=== PATIENT | male | born 1960 | race Caucasian/White ===

== ENCOUNTER 2022-02-23 19:39 | Emergency (ER) | payer OTHER, SELFPAY ==
[2022-02-23 19:40] VITALS: BP 144/98; PULSE 91; RESP 16; TEMP 36.6; O2SAT 98
--- NOTE | 2022-02-23 19:54 | ED.GENADULT ---
HPI - General Adult General Chief complaint: Unspecified Stated complaint: throat surgery ; throat is bleeding Time Seen by Provider: 02/23/22 19:41 Source: patient Mode of arrival: ambulatory Limitations: no limitations History of Present Illness HPI narrative: this is a 61-year-old gentleman that recently had adenoid ectomy and tonsillectomy approximately 9 days ago and was doing well until today when he was exposed to cigarette smoker and began coughing and cause some bleeding from the left surgery site. Currently the bleeding has significantly improved and slow down with no overt bleeding no pain no tenderness. The patient does not take any medications, has been using ibuprofen for some pain and discomfort. Onset (ago): hour(s) Location: mouth ( Bleeding from surgery site) Radiation: non-radiation Severity: mild Related Data Home Medications Medication Instructions Recorded Confirmed No Home Medications 02/23/22 02/23/22 Allergies Allergy/AdvReac Type Severity Reaction Status Date / Time No Known Allergies Allergy Verified 02/23/22 19:52 Review of Systems Review of Systems: All systems reviewed & are unremarkable except as noted in HPI and below PMFSH Past Medical History Medical History (Updated 02/23/22 @ 20:01 by Dick López MD) Patient denies medical problems Surgical History Surgical History (Updated 02/23/22 @ 20:01 by Dick López MD) History of tonsillectomy Social History Social History Smoking status: Never smoker Alcohol intake: current Exam Const: General: cooperative and healthy appearing HENMT: Head: other ( mild bleeding on the surgery site on the left tonsillar area) Face/Nose/Sinus: Normal external nose present Mouth/tongue images: 1. currently no overt bleeding, status post tonsillectomy Eyes: General: appearance normal, both eyes and all related structures Visual Sanchez: normal visual sanchez by confrontation Alignment and Position: alignment normal Periorbital: periorbital findings normal Eyelids: eyelids normal Conjunctivae: conjunctivae normal Sclera: sclerae normal Neck: Neck: normal visual inspection, full ROM, no lymphadenopathy and no meningeal signs Chest: Chest palpation & inspection: normal inspection of the chest and normal palpation of entire chest wall Resp: Effort & Inspection: normal respiratory effort and able to speak in complete sentences Cardio: Jugular venous distension: no JVD Palpation: normal PMI Rate: regular rate Rhythm: regular rhythm GI: Inspection: normal to inspection Auscultation: normal bowel sounds Skin: General skin exam: normal color and no rashes or lesions noted Rashes: no rashes Extrem: General: normal to inspection and full ROM Right lower extremity: normal to inspection Left lower extremity: normal to inspection Psych: Appearance: grossly normal Mental Status: mental status grossly normal Course Course Emergency Course: place gauze and advised patient to use the gauze in the posterior left mouth to bite down and put pressure, and also to avoid ibuprofen, can use Tylenol for any pain or discomfort. Critical Care Time Critical Care Time Critical Care Time: No Discharge Plan Discharge Clinical Impression: Bleeding from mouth, History of tonsillectomy Patient Disposition: Home, Self-Care Condition: Stable Instructions: Antibiotic Form, Bleeding Disorders (ED) Additional Instructions: advised to use gauze and as directed, avoid ibuprofen and follow-up with ENT for further evaluation and treatment. Prescriptions: No Action No Home Medications Follow-up/Referrals: UNKNOWN,DOCTOR [Primary Care Provider] - Time of Disposition: 20:01
--- NOTE | 2022-02-23 20:09 | PC.NURSE ---
AWAITING REG FOR DISPO
== END 2022-02-23 20:10 | disposition home or self-care (01) ==
LOC: CHSED 20:17
PROVIDERS: Emergency Provider Emergency Medicine
DX: R58 Hemorrhage, not elsewhere classified (principal); Z98.890 Other specified postprocedural states
CPT/HCPCS: 99281